=== PATIENT | female | born 1955 | race Caucasian/White ===

== ENCOUNTER → 2016-11-23 | Outpatient (CLI) | payer OTHER ==
[~2016-11-23] MED LIST: AMARYL2 MG PO; ASPIR 8181 M1 PO; ASPIRIN81 M2 PO; AVANDIA8 MG PO; CRANBERRY PO; FISH OIL SOFTG1 EAC2 PO; FOLIC ACID0.8 MG PO; GLIMEPIRIDE2 MG PO; HUMALOG100 UNIT/2 SC; INJECT-EASE1 EACH; IRON45 MG PO; JANUMET 50/11 TABLET PO; LEVAQUIN750 MG PO; LISINOPRIL20 MG PO; LOVENOX40 MG/0.4 SC; METFORMIN HCL1000 MG PO; MULTIVITAMIN1 EAC2 PO; MUSHROOM PO; MYCOSTATIN15 GM TP; NOVOLOG PE100 UNITS/ SC; SIMVASTATIN40 MG PO; ZESTRIL,PRINIVI40 MG PO; [UNRECOGNIZED DRUG - OTHER] PO
== END | disposition home or self-care (01) ==
LOC: RAD 08:03 → EDSTATUS 08:30 → RAD 08:30
PROC: 0W9G3ZZ Drainage of Peritoneal Cavity, Percutaneous Approach (ICD-10-PCS; principal; 2016-11-23)
DX: C56.9 Malignant neoplasm of unspecified ovary (principal); R18.0 Malignant ascites

== ENCOUNTER → 2016-12-06 | Outpatient (CLI) | payer OTHER ==
[~2016-12-06] MED LIST changes: -HUMALOG100 UNIT/2 SC
== END | disposition home or self-care (01) ==
LOC: RAD 07:35 → EDSTATUS 08:15 → RAD 08:15
PROC: 0W9G3ZZ Drainage of Peritoneal Cavity, Percutaneous Approach (ICD-10-PCS; principal; 2016-12-06)
DX: C56.9 Malignant neoplasm of unspecified ovary (principal); R18.0 Malignant ascites

== ENCOUNTER → 2016-12-13 | Outpatient (CLI) | payer OTHER ==
[~2016-12-13] MED LIST changes: +HUMALOG100 UNIT/2 SC
== END | disposition home or self-care (01) ==
LOC: RAD 07:37 → EDSTATUS 08:15 → RAD 08:15
PROC: 0W9G3ZZ Drainage of Peritoneal Cavity, Percutaneous Approach (ICD-10-PCS; principal; 2016-12-13)
DX: R18.0 Malignant ascites (principal); C56.9 Malignant neoplasm of unspecified ovary

== ENCOUNTER → 2016-12-20 | Outpatient (CLI) | payer OTHER | END | disposition home or self-care (01) | LOC: RAD 07:45 → EDSTATUS 08:30 → RAD 08:30 | PROC: 0W9G3ZZ Drainage of Peritoneal Cavity, Percutaneous Approach (ICD-10-PCS; principal; 2016-12-20) | DX: R18.8 Other ascites (principal); C56.9 Malignant neoplasm of unspecified ovary ==

== ENCOUNTER → 2016-12-26 | Outpatient (CLI) | payer OTHER | END | disposition home or self-care (01) | LOC: RAD 12:33 → EDSTATUS 13:15 | PROC: 0W9G3ZZ Drainage of Peritoneal Cavity, Percutaneous Approach (ICD-10-PCS; principal; 2016-12-26) | DX: R18.8 Other ascites (principal) ==

== ENCOUNTER → 2017-01-03 | Outpatient (CLI) | payer OTHER | END | disposition home or self-care (01) | LOC: RAD 07:38 → EDSTATUS 08:30 | PROC: 0W9G3ZZ Drainage of Peritoneal Cavity, Percutaneous Approach (ICD-10-PCS; principal; 2017-01-03) | DX: R18.8 Other ascites (principal); C56.9 Malignant neoplasm of unspecified ovary ==

== ENCOUNTER → 2017-01-10 | Outpatient (CLI) | payer OTHER ==
[~2017-01-10] MED LIST changes: +ZOFRAN4 MG PO
== END | disposition home or self-care (01) ==
LOC: RAD 12:42 → EDSTATUS 13:15 → RAD 13:15
PROC: 0W9G3ZZ Drainage of Peritoneal Cavity, Percutaneous Approach (ICD-10-PCS; principal; 2017-01-10)
DX: C56.9 Malignant neoplasm of unspecified ovary (principal); R18.0 Malignant ascites

== ENCOUNTER → 2017-01-16 | Outpatient (CLI) | payer OTHER ==
[2017-01-16 13:27] LABS: INTER. NORMALIZED RATIO 1.1; PROTHROMBIN TIME 10.9 (9.2-11.2); PTT 78.7 (25-32)
== END | disposition home or self-care (01) ==
LOC: OPR 12:09 → EDSTATUS 12:45 → OPR 12:45
PROVIDERS: Radiology Diagnostic Radiology
PROC: 0D9W30Z Drainage of Peritoneum with Drainage Device, Percutaneous Approach (ICD-10-PCS; principal; 2017-01-16)
DX: R18.8 Other ascites (principal); C56.9 Malignant neoplasm of unspecified ovary; Z92.21 Personal history of antineoplastic chemotherapy; C78.6 Secondary malignant neoplasm of retroperitoneum and peritoneum
CPT/HCPCS: 49406; 85610; 85730; C1729; J3010